=== PATIENT | female | born 1945 | race Caucasian/White ===

== ENCOUNTER → 2020-12-02 | Outpatient (CLI) | payer MEDICARE | LOC: KOH-I 15:15 | DX: M54.50 Low back pain, unspecified (principal); M47.816 Spondylosis without myelopathy or radiculopathy, lumbar region | CPT/HCPCS: 72148; 72170 ==

== ENCOUNTER → 2020-12-03 | Outpatient (CLI) | payer MEDICARE | LOC: KOH-I 10:00 | DX: M25.551 Pain in right hip (principal); M25.552 Pain in left hip; S32.89XA Fracture of other parts of pelvis, initial encounter for closed fracture | CPT/HCPCS: 72192 ==

== ENCOUNTER → 2021-03-15 | Outpatient (CLI) | payer MEDICARE | LOC: EXRD 12-16 09:30 | DX: M81.0 Age-related osteoporosis without current pathological fracture (principal) | CPT/HCPCS: 77080 ==